=== PATIENT | male | born 1990 | race Two or more races ===

== ENCOUNTER 2018-04-13 09:29 | Day surgery (SDC) | payer OTHER ==
[2018-04-13] MEDS ORDERED: LIDOCAINE 2% 1000 MG/50 ML VIAL INJ ONE (11:20)
== END 2018-04-13 13:00 | disposition home or self-care (01) ==
LOC: MMU 09:29 → MDS 09:29
PROVIDERS: ATTEND Internal Medicine Gastroenterology
DX: K70.10 Alcoholic hepatitis without ascites (principal); K70.30 Alcoholic cirrhosis of liver without ascites; I10 Essential (primary) hypertension; E78.5 Hyperlipidemia, unspecified; Z72.89 Other problems related to lifestyle; Z87.891 Personal history of nicotine dependence; Z79.899 Other long term (current) drug therapy; E66.9 Obesity, unspecified; Z98.890 Other specified postprocedural states
CPT/HCPCS: 47000; 76942; 88307; 88313; J2001; Q0092